=== PATIENT | female | born 1975 | race Two or more races ===

== ENCOUNTER 2025-01-03 00:10 | Inpatient (IN) | payer MEDICAID ==
[~2025-01-03] VITALS: Ht 152.4 cm; Wt 72.9 kg
[2025-01-03] VITALS (7 sets, daily range): BP systolic 98–164; BP diastolic 53–99; PULSE 115–134; RESP 14–24; TEMP 98–103.3; O2SAT 94–98
[2025-01-03] MEDS ORDERED: heparin 25,000 UNIT/250ml bag 250 ML IV PRN (00:20)
--- NOTE | 2025-01-03 00:28 | Physician Documentation ---
History of Present Illness ~ Chief Complaint: Syncope Stated Complaint: NSTEMI Time Seen by MD: 00:25 OK to notify your PCP?: Yes Source: patient, RN/MD, EMS, RN notes reviewed, EMS notes reviewed, old records Mode of Arrival: EMS Exam Limitations: no limitations, language barrier HPI This pleasant Luxembourger-speaking 49-year-old was transferred from [facility] for syncope non ST-elevation NE hypertension found down had an extensive workup. Patient was found to have elevated troponins started on a heparin drip transferred to our facility for admission however the patient also has tachycardia thought to have infection however the etiology is unclear. Patient's laboratory work for the most part was reassuring. Patient now arrives with tachycardia low-grade fever headache lack of meningeal signs. Patient is a 49-year-old was found down on the floor of the bathroom unknown length of time EMS was called local hospitalist saw her. Patient unfortunately answered yes to almost all questions including headache neck pain abdominal pain chest pain shortness of breath etc.. Patient's history is not reliable. When asked what happened patient basically says she does not know. Medication Reconciliation Allergies: Coded Allergies: No Known Allergies (Unverified , 01/03/25) Past Medical History Past Medical History: High Cholesterol, Hypertension, Diabetes, Depression Past Surgical History: cholecystectomy, other (Strict sleeve) Smoking Status: Never smoker Alcohol Use: None Drug Use: none Review of Systems All Other Systems at this time: Reviewed and Negative Physical Exam Vital Signs: RN Vital Signs have been reviewed: Yes, Temperature: 101.6, Source: Oral, Heart Rate: 130, Respiratory Rate: 16, BP: 159/84, Pulse Oximetry: 98, Weight: 72.900 Oxygen Flow Rate: 0 Physical Exam General: The patient is well developed, well nourished, nontoxic appearing and is in no acute distress. Sleepy uncomfortable does not want to talk tired Skin: [place], warm and dry with no rashes. Warm to touch HEENT: Head was normocephalic and atraumatic. Eyes - pupils equal, round, reactive to light and accommodation. Extraocular movements were intact. Conjunctivae were nonicteric. . The mouth and oropharynx were clear with moist mucous membranes. There were no pharyngeal exudates or erythema. Neck: Supple and nontender. There was no jugular venous distention, lymphadenopathy, thyromegaly or masses. Chest: Clear to auscultation bilaterally without wheezes, rales or rhonchi. No accessory muscle use. No dullness to percussion. Heart: Rate regular rapid and rhythmic. S1, S2. No murmurs. Palpation of the chest wall was normal. No rubs or thrills. Abdomen: Soft, nontender and nondistended. Positive bowel sounds. No guarding or rebound. No hepatosplenomegaly or palpable masses. Extremities: No cyanosis, clubbing or edema. The patient moves all extremities. Pulses were equal and symmetric. Neurologic: Cranial nerves II-XII were intact. Sensation was intact to light touch throughout. Motor strength was 5/5 in all four extremities. Deep tendon reflexes were intact in both upper and lower extremities. Psychologic: The patient was oriented to person, place and time. The patient demonstrated appropriate judgement and insight. Progress Progress Note 1:30 a.m. case discussed with the hospitalist team regarding admission possible etiologies regarding tachycardia. Results/Orders Reviewed/noted all lab results: Yes Results/Orders Orders - ANY WALDEN MD Monitor (01/03/25 00:12) Saline Lock (01/03/25 00:12) Oxygen (01/03/25 00:12) Electrocardiogram (01/03/25 00:12) Hs Troponin I W Calculations (01/03/25 02:12) Hs Troponin I W Calculations (01/03/25 03:12) Heparin 10,000 Unit/Ml 1ml (Heparin 10,0 (01/03/25 00:20) Heparin 25,000 Unit/250ml Bag (Heparin 2 (01/03/25:25) Acetaminophen 1,000mg/100ml Iv (Ofirmev (01/03/25 02:00) Procalcitonin (01/03/25 01:00) Ceftriaxone 2gm/D5w 50ml Bag (Rocephin 2 (01/03/25 01:00) Azithromycin/Ns 500mg/250ml (Zithromax/N (01/03/25 01:00) Chest,Single View (01/03/25 01:06) Cardiac Ptt (01/03/25 03:00) * Miscellaneous Nursing Orders (01/03/25 01:06) Completed Orders - ANY WALDEN MD Cbc/Diff (01/03/25 00:12) BMP (01/03/25 00:12) PBNP (01/03/25 00:12) Hs Troponin I W Calculations (01/03/25 00:12) Pt Inr (01/03/25 00:17) PTT (01/03/25 00:17) Heparin 25,000 Unit/250ml Bag (Heparin 2 (01/03/25 00:20) Acetaminophen 1,000mg/100ml Iv (Ofirmev (01/03/25 00:25) Normal Saline 1000ml (0.9% Sodium Chlori (01/03/25 00:25) Chest,Single View (01/03/25 01:06) Medications Received in ER Medications (Trade) Dose Ordered Sig/Jonh Route PRN Reason Start Time Stop Time Status Last Admin Dose Admin Acetaminophen 100 ml @ 400 mls/hr ONCE ONCE IV 01/03/25 00:25 10 00:39 DC 01/03/25 00:35 400 MLS/HR Heparin Sodium/ Dextrose 250 ml @ 9 mls/hr [id number] PRN IV TO MAINTAIN PTT WITHIN RANGE 01/03/25 00:25 01/03/25 01:22 9 MLS/HR (0.9% sodium chloride (NS) 1000ml IV soln) 1,000 ml ONCE ONCE IVB 01/03/25 00:25 01/03/25 00:26 DC 01/03/25 00:54 1,000 ML Vital Signs 01/03/25 01/03/25 00:13 00:58 Temp 101.6 Pulse 130 Resp 16 20 B/P (MAP) 159/84 Pulse Ox 98 O2 Flow Rate 0 Laboratory Tests Test 01/03/25 00:35 White Blood Count 10.7 Red Blood Count 4.82 Hemoglobin 14.7 Hematocrit 43.5 Mean Corpuscular Volume 90.1 Mean Corpuscular Hemoglobin 30.5 Mean Corpuscular Hemoglobin Concent 33.8 Red Cell Distribution Width 14.2 Platelet Count 156 Mean Platelet Volume 9.3 Neutrophils (%) (Auto) 81.3 H Lymphocytes (%) (Auto) 14.6 L Monocytes (%) (Auto) 3.8 Eosinophils (%) (Auto) 0 Basophils (%) (Auto) 0.3 Neutrophils # (Auto) 8.7 H Lymphocytes # (Auto) 1.6 Monocytes # (Auto) 0.4 Eosinophils # (Auto) 0.0 Basophils # (Auto) 0.0 CBC Comment Prothrombin Time 11.4 INR International Normalized Ratio 1.1 Activated Partial Thromboplast Time 59 H Coagulation Comments Sodium Level 141 Potassium Level 3.7 Chloride Level 104 Carbon Dioxide Level 24.5 Anion Gap 13 Blood Urea Nitrogen 14 Creatinine 1.06 H Estimated GFR/1.73 m2 55 BUN/Creatinine Ratio 13.2 Glucose Level 180 H Calcium Level 8.9 Troponin I High Sensitivity 268 *H Pro-B-Type Natriuretic Peptide 492 H Albumin 3.7 Chemistry Comments Re-Evaluation Re-Evaluation : Re-Evaluation: Unchanged Progress Patient was seen and examined. Patient is given reassurance. Patient had and a very extensive workup at [place] looking for possible fever and etiologies of the elevated troponins. Patient's so has tachycardia fever but no source of infection. Patient arrived on a heparin drip was continued on that received another L bolus for the tachycardia also Tylenol for the fever. Review of the medical record shows the fluid boluses that the patient received also radiographic studies which showed a CT C-spine without contrast was negative CT abdomen pelvis with IV contrast which was negative for infection or abnormality CT of the head was negative for any intracranial bleed or stroke. CT angiogram of the chest was also done to rule out pulmonary embolism did not show any infiltrates or effusions. Patient's laboratory work showed a white count of 10.7 otherwise within normal limits chemistry was also reassuring with a CO2 level slightly low at 21 glucose 244 BUN 12 creatinine was 1.25 calcium was elevated at 10.4 normal magnesium and bilirubin slightly elevated at 1.27 otherwise LFTs within normal limits TSH was 0.8 lactic acid initially was 2.2 then 1.70 and improve lipase was normal. Urinalysis was negative for any source of infection. Patient even had a toxicology workup which was negative for alcohol aspirin and Tylenol. The CT scan did show patchy opacities of the posterior left lower lobe which possibly could represent pneumonia. Patient ultimately was then discharged to our facility for further workup and care. Medications that were given at [facility] includes saline boluses labetalol contrast dye Compazine Benadryl heparin drip Continuous youth nutritional monitor interpretation shows sinus tachycardia heart rate 130s, abnormal, my interpretation. Pulse oximetry monitor interpretation shows normal oxygenation at 98% room air, normal, my interpretation. I did not see any antibiotics given at [place]. Patient has no allergies was given Rocephin and Zithromax. EKG/XRAY/CT/US/VASC/MRI EKG : Intepreting Monitor?: Yes Additional Comment 20 minutes after midnight EKG shows sinus tachycardia heart rate 126 with QTC 502 poor R-wave progression. Chest X-Ray : Interpreted By: self Views: 1 VIEW Additional Comments Increased markings but no obvious infiltrates noted Medical Decision Making Additional info obtained from: old records Differential Dx:Considerations: Include: anemia, CVA, cerebral occlusion, cerebral thrombosis, dehydration, dysrhythmia, electrolyte disorder, encephalopathy, hypoglycemia, hypovolemia, labyrinthitis, Meniere's disease, myocardial infarction, pulmonary embolus, TIA, vasovagal, VBI, vertigo central, vertigo peripheral, vestibular neuronitis, other Departure Disposition: ADMITTED INPATIENT Admitted to Inpatient Unit: yes, to hospitalist Admission Level of Care: PCU with Tele Impression: Primary Impression: Syncope Qualified Codes: R55 - Syncope and collapse Additional Impressions: Non-STEMI (non-ST elevated myocardial infarction) Fever Qualified Codes: R50.9 - Fever, unspecified Tachycardia Pneumonia Qualified Codes: J18.9 - Pneumonia, unspecified organism Condition: Critical Referrals: NO PRIMARY CARE PROVIDER (PCP) Education Educated: Patient Educated regarding: diagnosis, need for follow up, other Critical Care Note Total Time (mins): 33 Critical Care Note The very real possibility of a deterioration of this patient's condition required the highest level of my preparedness for sudden, emergent intervention. I provided critical care services, which included medication orders, frequent reevaluations of the patient's condition and response to treatment, ordering and reviewing test results, and discussing the case with various consultants. Excludes time spent performing separately billable procedures. The critical care time associated with the care of the patient was. 33 minutes Signature Scribe Signature: No Attestation: The note accurately reflects work and decisions made by me.Any Walden MD 01/03/25 00:59 ANY WALDEN MD Jan 03, 2025 00:28
[2025-01-03] MEDS: acetaminophen 1,000mg/100ml IV 100 ML IV ONE ×2 (00:35→20:56)
[2025-01-03 00:51] LABS: MEAN PLATELET VOLUME 9.3 FL (7.4-10.4); RED CELL DISTRIBUTION WIDTH 14.2 % (11.5-14.5)
[2025-01-03] MEDS: normal saline 1000ML IV soln IVB ONE (00:54)
[2025-01-03] MEDS: acetaminophen 1,000mg/100ml IV 100 ML IV SCH (00:55)
[2025-01-03] MEDS: azithromycin/NS 500mg/250ml 250 ML IV ONE (01:00)
[2025-01-03 01:01] LABS: APTT 59 SECONDS (22-32); INR 1.1 INR
[2025-01-03 01:09] LABS: CREATININE 1.06 MG/DL (0.40-0.90); PRO BRAIN NATRIURETIC PEPTIDE 492 PG/ML (0-125); TOTAL CARBON DIOXIDE 24.5 MMOL/L (24-32); eCRCL 46 ML/MIN; eGFR 55 ML/MIN
[2025-01-03] MEDS: heparin 25,000 UNIT/250ml bag 250 ML IV PRN (01:22)
[2025-01-03] MEDS: CefTRIAXone 2gm/D5W 50ml BAG 50 ML IV ONE (01:27)
[2025-01-03] MEDS ORDERED: magnesium sulf-water 2g/50mL 50 ML IV PRN (02:00)
[2025-01-03] MEDS ORDERED: potassium Cl 40MEQ/1/2NS 520ml 520 ML IV PRN (02:00)
[2025-01-03] MEDS ORDERED: magnesium Cl slow-release 64mg tablet PO PRN (02:00)
[2025-01-03] MEDS: normal saline 1000ml 1,000 ML IV SCH (02:00)
[2025-01-03] MEDS ORDERED: potassium Cl 20 mEq SR tablet PO PRN (02:00)
[2025-01-03] MEDS ORDERED: magnesium sulf-water 4G/100mL 100 ML IV PRN (02:00)
[2025-01-03 02:22] LABS: INFLUENZA TYPE A ANTIGEN RAPID NEGATIVE (Negative); INFLUENZA TYPE B ANTIGEN RAPID NEGATIVE (Negative)
--- NOTE | 2025-01-03 02:25 | HISTORY AND PHYSICAL-Residence ---
History & Physical Providers to CC Resident Creating Document: ERICK PEREZ RES ~ History of Present Illness Primary Medical Doctor: Unknown Reason for Admit\\Complaint: AMS, Syncope, Sepsis History of Present Illness 49-year-old female Indonesian-speaking patient with a past medical history of insulin-dependent type 2 diabetes mellitus and hypertension was transferred to our facility from [place] for further management of her syncope, AMS and hypothermia. An sign language interpreter head with translation and communication (ID #[id number]). Patient is a very poor historian and is reluctant to provide any history by herself. Reviewed records from [place] and very minimal information has been obtained from the patient. 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 As per EMS and [place], the patient is brought in by ambulance after she had a syncopal episode at home. The ambulance was called in by her son. She presented with high blood pressure in the high 180s and persistent sinus tachycardia. She was also found to be febrile throughout the hospitalization. An extensive workup was done in the other hospital including a CT head and CT spine had no acute abnormalities. In view of the tachycardia, 1.5 L of IV fluid boluses were given but her heart rate failed to respond to either. IV labetalol 10 mg IV push x2 was given and the patient is still failed to respond. A CTA chest ruled out presence of pulmonary embolism but revealed possible patchy opacities in the posterior left lower lobe reflecting possible mild aspiration pneumonitis. A CT with IV contrast of the abdomen and pelvis were also performed but to his lack of oral contrast and largely collapsed large bowel; examination was limited. However, they found no free fluid or loculated fluid collection within the abdomen. Her labs also indicated lactic acidosis, initially at 1.7 which later increased to 2.2 despite IV fluid resuscitation. Her blood glucose was only 244. She was additionally evaluated for creatinine kinase and TSH which were also within normal limits. No antibiotics were given at [place]. She was transferred for higher level care has a troponins were elevated mildly NS suspicion of NSTEMI a heparin drip was started prior to transfer. Review of medications, Contrasting history was provided by the patient reporting that she had suffered no fall and felt acutely weak while she was in the bathroom. She reports having chills and headache over the last couple of days but had no fevers, shortness of breath, cough, abdominal pain, burning micturition, or diarrhea. She reports some "gentleman" called the ambulance for her as she was significantly weak. Course at [place]: 1.5 L bolus, Iv labetolol 10mg IV push x2. Heparin drip. Labs: White count 10.7 with neutrophilic predominance at 84%. Hemoglobin 16.7 and hematocrit 49.2. CMP revealed blood glucose at 2:44 a.m., creatinine 1.25, elevated calcium at 10.4, no albumin on board. Elevated total bilirubin at 1.27. ALT within normal limits with mildly elevated AST at 36. Normal alkaline phosphatase normal lipase. Ammonia 28. Urine tox positive for benzodiazepines. Tylenol level, salicylic acid level and ethanol level were negative. His UA was also cleaned for a UTI Allergies: Coded Allergies: No Known Allergies (Unverified , 01/03/25) Past Medical History Past Medical History Hypertension, type 2 diabetes mellitus- insulin-dependent, depression Past Surgical History Surgical History Comment Appendectomy, cholecystectomy, /hysterectomy Past Social History Social History Comment Unable to be obtained Alcohol Use: None Drug Use: None ROS All Other Systems: Reviewed and Negative ROS Unable to be fully obtained Constitutional: Reports: chills Exam Vitals: Vital Signs Date Time Temp Pulse Resp B/P (MAP) Pulse Ox O2 Delivery O2 Flow Rate FiO2 01/03/25 02:04 99.9 124 18 125/98 (107) 98 01/03/25 00:13 0 General: General: Awake and drowsy. Wakes up on command. Febrile to touch HEENT: Conjunctiva pink, Sclera clear, Mucus Membranes dry Neck: Supple without masses and tenderness. No Kernig's or Brudzinski's sign Resp: Unlabored. Lungs clear to auscultation bilaterally. Heart: Sinus tachycardia, normal S1 and S2 without murmur, rub or gallop. Abdomen: Diffuse tenderness noted. Soft and non tender no organomegaly Extremities: No cyanosis,clubbing or edema. SHEET LAYER: Unable to perform secondary to drowsiness and voluntary inhibition Skin: Warm and Dry. No rashes Diagnostic Data Last Recorded Lab Results: 01/03/25 0035 01/03/25 0035 Diagnostic Data: Laboratory Tests Test 10/5/25 00:35 Prothrombin Time 11.4 SECONDS (9.0-12.0) INR International Normalized Ratio 1.1 INR Activated Partial Thromboplast Time 59 SECONDS (22-32) H Coagulation Comments Advance Care Planning Advanced Care plannin - 30 Minutes Additional Plan 1. Altered mental status: Acute metabolic versus toxic encephalopathy Differentials: Infectious versus/medication overdose/serotonin syndrome/meningitis/encephalitis Syncope under evaluation SIRS: POA; febrile and hypotensive (91/60 when in the room) Neutrophilic predominance at 81.3%, WBC 10.7. Follow peripheral smear Influenza and COVID negative. Follow up blood cultures. Follow UA and urine cultures if required Lactic acidosis at the other facility; repeat lactic acid ordered. Procalcitonin mildly elevated 0.6. Repeat procalcitonin in a.m. Continue IVF at the rate of 100 cc/hour. Empirical cefepime started fro better SHEET LAYER coverage If next procalcitonin still elevated, consider evaluating abdominal tenderness with CT abdomen and pelvis with oral contrast If encephalopathy persists, consider ABG. Consider neurology consulted Infectious Disease consult as well for ongoing encephalopathy patient fails to improve Other differentials include toxic encephalopathy secondary to benzodiazepine use. UA positive for benzodiazepine, home meds do not revealed benzos as it was not given an [place] as per medical records. Repeat tox screen ordered Possible serotonin syndrome because patient is agitated, diaphoretic, febrile, and hypertensive. Clonus or hypertonia was not appreciated. Benzos already present in the UA which could mean she might have received it; preventing her presentation of clonus or hypertonia Continue close hemodynamic monitoring Follow echocardiogram for syncope. Continue telemetry monitoring Passed bedside swallow eval Fall precautions, neurochecks Q4 2. Mild aspiration pneumonitis: Chest x-ray with no acute abnormalities Likely recovering infection Home medications revealed azithromycin fro 5 days as a history 3. Prolonged QT: QT 507 Hemodynamically stable Likely from azithromycin and Lexapro combination Potassium within normal limits. Follow Mag and phos levels Replace potassium as per protocol Continue telemetry monitoring Repeat EKG in am 4. NSTEMI/type 2 WV: Asymptomatic EKG reveals sinus tachycardia Likely demand ischemia Cardiology evaluation in am 5. Mild CALI: Unknown baseline Creatinine 1.2 at the other facility; improved to 1.06 on our labs here with IVF Continue IVF rate of 100 cc/hour Follow up BMP 6. Hypertension: On lisinopril 40 mg and metoprolol 50 mg b.i.d. One dose metoprolol enough food sinus tachycardia Monitor for hemodynamic stability 7. Insulin-dependent type 2 DM: On hyperglycemia/hypoglycemia protocol 8. Depression: On Lexapro 10 mg 9. Hypokalemia: Home medication of 8 mEq potassium chloride Likely secondary to insulin-dependent DM leading to hypokalemia Revisit: Patient continued to be tachycardic. Received another bolus of IV fluids. Received a total of 3.5 L IV fluid boluses. Additionally, she received Rocephin and Zithromax in the ER. Lines: PIV Code status: Full code DVT prophylaxis: Heparin GI prophylaxis: Heparin Diet: 75 g carb controlled Erick Perez PGY3, Internal medicine resident I saw and discussed the case with the resident agree with assessment and plan Date of Service: Jan 03, 2025 Billing Provider: BRIDGETTE HANKS MD, DEEPANJALI, [facility] Jan 03, 2025 02:25 BRIDGETTE HANKS MD Jan 03, 2025 08:04
[2025-01-03] MEDS ORDERED: dextrose 50%-water 50ml dispensing syringe IV PRN ×2 (02:55)
[2025-01-03] MEDS ORDERED: DEXTROSE 15 GM of carb/4 tabs (each vial/BOTTLE has 4 tablets) PO PRN ×2 (02:55)
[2025-01-03] MEDS ORDERED: glucagon, human recombinant 1mg kit SUBCUT PRN (02:55)
--- NOTE | 2025-01-03 03:12 | RADIOLOGY REPORT ---
CHEST RADIOGRAPH Indication: SOB Technique: 1 view Comparison: None FINDINGS: Lines and Tubes: External leads. Lungs/Pleura: Interstitial opacities in the fvpz-ytrjgvv-xabi-right lower lungs. No focal consolidation. No pleural abnormality. Cardiomediastinum: Unremarkable. Other: No acute osseous abnormality. Right upper quadrant surgical clips. IMPRESSION: 1. Ljan-ogzrjlr-qumv-right basilar interstitial opacities suggest edema or atypical infection. No consolidation.
[2025-01-03] MEDS: normal saline 1000ml 1,000 ML IV ONE ×3 (03:40→18:30)
[2025-01-03] MEDS ORDERED: [UNRECOGNIZED DRUG - CODE] PO (05:09)
[2025-01-03] MEDS ORDERED: ESCI10TA PO (05:13)
[2025-01-03] MEDS ORDERED: POTA-205 PO (05:13)
[2025-01-03] MEDS ORDERED: LISI40TA20 PO (05:13)
[2025-01-03] MEDS ORDERED: FURO-150 PO (05:13)
[2025-01-03] MEDS ORDERED: METO50TA16 PO (05:13)
[2025-01-03] MEDS ORDERED: METF-438 PO (05:13)
[2025-01-03 05:25] LABS: PHOSPHORUS 4.0 MG/DL (2.3-4.5)
[2025-01-03] MEDS ORDERED: piperacillin/tazo 3.375gm/50ml 50 ML IV SCH (08:00)
[2025-01-03] MEDS ORDERED: heparin, porcine 5000 units/ml vial SQ SCH (08:00)
[2025-01-03] MEDS ORDERED: ipratropium/albuterol 3ml nebule NEB PRN (08:25)
[2025-01-03] MEDS: docusate sod 100mg capsule PO SCH (08:34)
[2025-01-03] MEDS: INSULIN LISPRO 100 UNIT/ML INSULN.PEN MULTI-DOSE SQ SCH (08:47)
[2025-01-03 09:53] LABS: LYMPHOCYTES % (MANUAL) 30.0 % (21-51); MONOCYTES % (MANUAL) 8.0 % (2-12); NEUTROPHILS % (MANUAL) 62.0 % (42-75)
[2025-01-03 09:54] LABS: PLATELET ESTIMATE NORMAL
[2025-01-03] MEDS: K and/or MAG REPLACEMENT MC SCH (12:55)
[2025-01-03] MEDS: MESSAGE TO NURSING IV ONE (12:55)
--- NOTE | 2025-01-03 15:48 | VASCULAR REPORT ---
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 : DARRELL NAGY Preliminary Report The above named patient was referred for a NON-INVASIVE CEREBROVASCULAR EVALUATION. The evaluation includes grayscale imaging, color flow Doppler and spectral analysis of the bilateral carotid and vertebral arteries. Patient IN-PATIENT L tatihnBilateral Indications Syncope Risk Factors Hypertension: Diabetes Doppler Spectral Velocity Analysis Right Left pCCA 118/15 cm/s pCCA 142/22 cm/s dCCA 133/20 cm/s dCCA 173/22 cm/s ECA 146/ cm/s ECA 188/ cm/s pICA 38/4 cm/s pICA 67/0 cm/s Arron 154/19 cm/s Arron 84/16 cm/s dICA 102/4 cm/s dICA 44/6 cm/s Vert 192/65 cm/s Vert. 111/56 cm/s Subcl. 138/ cm/s Subcl. 195/ cm/s ICA/CCA 1.16 ICA/CCA 0.48 Real-Time B-Mode Imaging Area Findings Right Left CCA Plaque Composition Heterogeneous Heterogeneous Plaque Description Irregular Irregular BIF Plaque Composition Heterogeneous Heterogeneous Plaque Description Irregular Irregular ICA Plaque Composition Heterogeneous Heterogeneous Plaque Description Irregular Irregular Vertebral Antegrade Antegrade Subclavian Multiphasic Multiphasic Impression: Technically difficult exam due to increased resistive components noted throughout the carotid arteries bilaterally. Difficulty assessing with temporal tab due to patient body habitus and elevated heart rate. Heterogeneous irregular plaque visualized at the carotid artery bifurcation extending into the proximal internal carotid arteries bilaterally. Less than 50% stenosis visualized in the internal carotid arteries bilaterally per criteria, however, visually the internal carotid arteries appear greater than 70% stenosed bilaterally. There was also a increased resistive component noted in the internal carotid arteries bilaterally, possibly suggesting a distal obstruction. Less than 50% stenosis visualized in the external and common carotid arteries bilaterally. The vertebral arteries display antegrade flow bilaterally, flow in the vertebral arteries also appears compensatory. Multiphasic waveforms noted in the subclavian arteries bilaterally. Findings verbally relayed to ordering physician.
[2025-01-03] MEDS: cefepime 1GM in D5W 50mL 50 ML IV SCH (16:24)
[2025-01-03] MEDS: aspirin 81mg, enteric-coated 1 TAB TABLET.DR PO ONE ×2 (16:55→17:07)
[2025-01-03] MEDS: metoprolol tartrate 1mg/ml inj IV PRN (17:44)
[2025-01-03] MEDS ORDERED: metoprolol tartrate 1mg/ml inj IV PRN (18:00)
[2025-01-03] MEDS ORDERED: aminophylline 250mg/10ml inj. IV PRN (18:00)
[2025-01-03 18:25] LABS: URINE AMPHETAMINE SCREEN NEGATIVE (Neg); URINE BARBITUATE SCREEN NEGATIVE (Neg); URINE BENZODIAZEPINES SCREEN NEGATIVE (Neg); URINE CANNABINOID SCREEN NEGATIVE (Neg); URINE COCAINE SCREEN NEGATIVE (Neg); URINE METHADONE SCREEN NEGATIVE (Neg); URINE OPIATE SCREEN NEGATIVE (Neg); URINE PHENCYCLIDINE SCREEN NEGATIVE (Neg)
[2025-01-03 18:31] LABS: LEUKOCYTE ESTERASE ,URINE NEGATIVE (Neg); NITRITES, URINE NEGATIVE (Neg); OCCULT BLOOD,URINE TRACE-INTACT (Neg)
[2025-01-03 18:37] LABS: UA COLLECTION TYPE NON-SPECIFIED
[2025-01-03 18:39] LABS: MUCUS STRANDS FEW /LPF (Neg); SQUAMOUS EPITHELIAL CELL,UR FEW /LPF (FEW)
[2025-01-03] MEDS: VANCOMYCIN/H2O 1.5g/300mL PB 300 ML IV ONE (19:47)
[2025-01-03] MEDS: insulin glargine (Lantus) pen - multi-dose SQ SCH (21:16)
--- NOTE | 2025-01-03 23:43 | RADIOLOGY REPORT ---
PROCEDURE: MR MRI HEAD INDICATION: syncope EXAM DATE: 01/03/2025 06:38 PM COMPARISON: None TECHNIQUE: MRI of the brain without intravenous contrast. FINDINGS: Diffusion weighted images of the brain demonstrate no evidence of acute infarction. There is no evidence of acute intracranial hemorrhage, extra-axial collection, mass effect, midline shift, herniation or hydrocephalus. The ventricles, sulci and cisterns appear age appropriate. Minimal foci of kwtg-ibiutbx-jcgx-right subcortical and periventricular white matter T2/FLAIR hyperintensity. There are no signal abnormalities on the susceptibility weighted sequences. The major vascular flow voids are present. The visualized paranasal sinuses and mastoid air cells are clear. The surrounding soft tissues and osseous structures are unremarkable. IMPRESSION: 1. No infarct or other acute intracranial abnormality. 2. Minimal burden of white matter signal change, most likely related to chronic microangiopathy. 3. A baseline head CT is recommended if not previously acquired.
[2025-01-04] VITALS (15 sets, daily range): BP systolic 97–178; BP diastolic 50–89; PULSE 102–121; RESP 10–18; TEMP 97.4–99.3; O2SAT 94–100
[2025-01-04 01:30] LABS: MEAN PLATELET VOLUME 9.3 FL (7.4-10.4); RED CELL DISTRIBUTION WIDTH 14.0 % (11.5-14.5)
[2025-01-04 01:46] LABS: CHOL/HDL RATIO 3.6 (0.00-4.99); CREATININE 0.72 MG/DL (0.40-0.90); LDL CHOLESTEROL 69 MG/DL (50-100); PHOSPHORUS 2.3 MG/DL (2.3-4.5); TOTAL CARBON DIOXIDE 24.1 MMOL/L (24-32); eCRCL 67 ML/MIN; eGFR 86 ML/MIN
[2025-01-04] MEDS: MESSAGE TO NURSING IV ONE ×3 (02:25→10:39)
[2025-01-04] MEDS: heparin 10,000 units/1 ML INJ IV PRN (02:49)
--- NOTE | 2025-01-04 05:25 | ELECTROCARDIOGRAPH REPORT ---
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 Brice Gutierrez Measurements Intervals Amigo Rate: 126 P: 48 MA: 129 QRS: 37 QRSD: 85 T: 30 QT: 346 QTc: 502 Interpretive Statements Sinus tachycardia Probable left atrial enlargement Borderline prolonged QT interval Electronically Signed On 01-04-2025 5:36:[address] Brice Gutierrez Please click the below link to view image of tracing.
[2025-01-04] MEDS: aspirin 81mg, enteric-coated 1 TAB TABLET.DR PO SCH (08:05)
[2025-01-04] MEDS: ondansetron/PF 4mg/2ml inj IV PRN (08:05)
[2025-01-04] MEDS: LidoCAINE 2% Topical Jelly 11mL syringe (UROJET) TOP ONE (09:02)
[2025-01-04] MEDS: azithromycin/NS 500mg/250ml 250 ML IV SCH (09:04)
[2025-01-04] MEDS ORDERED: heparin 25,000 UNIT/250ml bag 250 ML IV PRN (10:28)
--- NOTE | 2025-01-04 12:32 | PROGRESS NOTE ---
Daily Progress Note Providers to CC ~ Antibiotic Timeout Antibiotic Ordered?: Yes Subjective No acute events overnight. Patient examined at bedside. No new complaints. Patient denies chest pain, sob, palpitations, abdominal pain, n/v/d. Persistently febrile, today 102F, one out of two preliminary blood cultures positive. MRI head negative acute intracranial abnormality. TTE LVEF 70-75%, no evidence of vegetation. Consulted ID Dr. Garcia. Lumbar puncture to be done per ID recommendation. LP ordered. Objective Vital Signs Date Time Temp Pulse Resp B/P (MAP) Pulse Ox O2 Delivery O2 Flow Rate FiO2 01/04/25 11:00 97.5 108 10 112/58 (76) 97 Room Air 01/04/25 07:18 0 21 Result Diagram: 01/04/2511301/04/25113 Physical Exam General: Generalized weakness, awake, not alert or oriented, NAD HEENT: Normocephalic, PERRLA Neck: Supple, trachea midline, no JVD Chest: Clear to auscultation bilaterally Cardiovascular: Rapid, regular GI: Soft and nontender Extremities: No cyanosis/clubbing/or edema ALUMINUM HYDROXIDE PROCESS OPERATOR: No focal deficits Musculoskeletal: No paraspinal muscle tenderness, no muscle spasm Skin: Warm and intact Coagulation Studies Laboratory Tests Test 01/03/25 00:35 01/04/25 09:00 Prothrombin Time 11.4 SECONDS (9.0-12.0) INR International Normalized Ratio 1.1 INR Activated Partial Thromboplast Time 59 SECONDS (22-32) H APTT (Heparin Protocol) 101 SECONDS (45-60) *H Coagulation Comments Problem\Assessment\Plan Assessment & Plan Meningitis- to rule out Syncope Bacteremia Sepsis- source unknown NSTEMI likely Type II TN 2/2 above -influenza, COVID19 neg, UA unremarkable, CT abd/pelv at OSH unremarkable, elevated lactic acidosis 2.2 at OSH downtrended to 2.0, CTA PE ruled out but showed patchy opacities in posterior left lobe of lung, trops, Oneyda neg downtrended, UDS at OSH positive BZD; TTE LVEF 70-75%, no evidence of vegetation, consulted ID Dr. Garcia with recommendation for lumbar puncture. LP ordered, will be done by anesthesiologist Dr. Mendes. Mild aspiration pneumonitis -CXR negative acute findings CALI vs CKD Hypertension IDDM MDD Hypokalemia -antihypertensive started, on hyperglycemia/hypoglycemia protocol, K/Mg per protocol Code status: Full code DVT/VTE prophylaxis: heparin Date of Service: Jan 04, 2025 Billing Provider: YAKOV RAMÍREZ Common Visit Codes: [id number] INP/OBS CARE(HIGH) YAKOV RAMÍREZ Jan 04, 2025 12:32
[2025-01-04] MEDS: regadenoson 0.4mg/5ml syringe IV PRN (12:36)
[2025-01-04] MEDS: acetaminophen 1,000mg/100ml IV 100 ML IV ONE (12:43)
--- NOTE | 2025-01-04 13:38 | RADIOLOGY REPORT ---
Reason for study/Clinical History: nstemi Comparison Study: None Myocardial Perfusion Study with SPECT Technique: The patient received an intravenous injection of 7.7 mCi of technetium-99m Sestamibi while at rest. After a short delay, SPECT tomographic images of the heart were obtained. The patient then went to the stress lab where they received an intravenous Lexiscan utilizing standard protocol. 33.9 mCi of technetium-99m Sestamibi was injected intravenously immediately after the start of the infusion. Gated SPECT tomographic images of the heart were acquired and processed. Findings: Rotating planar images show no significant attenuation artifact. The left ventricular size is within normal limits. Stress tomographic images demonstrate normal perfusion. Resting tomographic images demonstrate a similar pattern. Gated portion of the study shows normal wall motion and myocardial thickening. The left ventricular ejection fraction is 77%. (normal greater than 50%) Impression: Normal left ventricular size, wall motion, and function, without evidence of infarction or of myocardium at ischemic risk. The left ventricular ejection fraction is 77%.
--- NOTE | 2025-01-04 18:48 | CARDIOLOGY REPORT ---
APPROVED REPORT EXAM: Comprehensive 2D, Doppler, and color-flow Echocardiogram. Patient Location: 3016 [address] Heart Rate: 106 bpm Rhythm: SINUS TACHYCARDIA Indications SYNCOPE TACHYCARDIA ELEVATED TROPONINS Utility Aide: NONE Previous echo: NONE 2D Dimensions RVDd 3.6 cm LA Diam 3.5 cm IVSd 0.9 (0.7-1.1cm) LVDd 3.5 cm PWd 0.9 (0.7-1.1cm) IVSs 1.0 (0.8-1.2cm) LVDs 2.5 (2.5-4.0cm) PWs 1.3 (0.8-1.2cm) LVOT Diameter 1.99 (1.8-2.4cm) FS (%) 28.6 % SV 29.3 ml CO 3.1 L/min M-Mode Dimensions Aortic Root 2.37 (2.2-3.7cm) Aortic Valve AoV Peak Dylan. 193.8 cm/s AoV VTI 30.0 cm AO Peak GR. 15.0 mmHg AO Mean GR. 8 mmHg LVOT VTI 27.80 cm NOLBERTO(VTI)/BSA 2.89 cm2/m2 NOLBERTO (VTI) 2.89 cm2 AV DI 0.93 % Mitral Valve MV E Velocity 84.0 cm/s MV Peak Gr. 6 mmHg MV DECEL TIME 164 ms MV A Velocity 119.1 cm/s MV PHT 64 ms E/A Ratio 0.7 MVA (PHT) 3.44 cm2 MV VMax 125.0 cm/s TDI Lateral E' P. V 10.64 cm/s E/Lateral E' 7.9 Pulmonary Vein S1 Velocity 39.9 cm/s D2 Velocity 56.3 cm/s PVa Velocity 28.2 cm/s PVa Duration 160 msec LEFT VENTRICLE Normal LV size and wall thickness. Overall systolic function is normal. LVEF is 70-75%. RIGHT VENTRICLE RV is mildly dilated with normal function. ATRIA The left atrium size is normal. AORTIC VALVE Trileaflet AV appears normal without stenosis. No insufficiency. MITRAL VALVE Mild MV annular calcification without stenosis. Trace regurgitation. TRICUSPID VALVE TV appears structurally normal with trace regurgitation. PULMONIC VALVE Normal PV without stenosis, physiologic insufficiency. GREAT VESSELS The aortic root is normal in size. PERICARDIUM Normal pericardium. No effusion. Other Information Study Quality: Adequate Conclusion Normal LV size and wall thickness. Overall systolic function is normal. LVEF is 70-75%. RV is mildly dilated with normal function. The left atrium size is normal. Trileaflet AV appears normal without stenosis. No insufficiency. Mild MV annular calcification without stenosis. Trace regurgitation. TV appears structurally normal with trace regurgitation. Normal pericardium. No effusion.
[2025-01-04] MEDS: heparin, porcine 5000 units/ml vial SQ SCH (20:08)
[2025-01-04] MEDS: CefTRIAXone 2gm/D5W 50ml BAG 50 ML IV SCH (20:11)
[2025-01-04] MEDS: metoclopramide 5 mg/ml inj IV PRN (20:14)
[2025-01-05] VITALS (20 sets, daily range): BP systolic 114–199; BP diastolic 72–98; PULSE 92–112; RESP 10–22; TEMP 97.7–102.5; O2SAT 94–99
[2025-01-05] MEDS: HYDROcodone/acetaminophen 5mg/325mg tablet PO PRN (03:58)
[2025-01-05 06:48] LABS: MEAN PLATELET VOLUME 9.3 FL (7.4-10.4); RED CELL DISTRIBUTION WIDTH 13.5 % (11.5-14.5)
[2025-01-05 07:07] LABS: CREATININE 0.69 MG/DL (0.40-0.90); PHOSPHORUS 2.4 MG/DL (2.3-4.5); TOTAL CARBON DIOXIDE 25.1 MMOL/L (24-32); eCRCL 70 ML/MIN; eGFR 90 ML/MIN
[2025-01-05] MEDS: pantoprazole 40mg Tablet.DR PO SCH (07:30)
[2025-01-05 07:44] LABS: HIV ANTIBODY 1&2 RAPID NON-REACTIVE (Neg)
--- NOTE | 2025-01-05 08:30 | CONSULTATION ---
DATE OF CONSULTATION: 01/04/2025 DICTATING PHYSICIAN: Candelario Garcia MD REASON FOR CONSULTATION: I am seeing the patient at the request of Wilmer Shepherd for evaluation of fever and sepsis with encephalopathy. HISTORY OF PRESENT ILLNESS: The patient is a 49-year-old female, who lives in [place] and was apparently transferred to this facility from [facility] for further evaluation. I believe she had an elevated troponin that was fairly mild, but she was sent here for a higher level of care. She was apparently brought into that facility with altered mental status. She has demonstrated fever. She does not provide significant history due to some confusion. She speaks Zimbabwean. I did see her today with a healthcare provider that does speak Zimbabwean. She does not have any family at the bedside. She did know the town that she lives in. She was able to tell me that she has had some headache and neck stiffness recently. She otherwise does not have any pain. She denies any focal weakness or numbness. She has been having fever up to 103 at this facility. Interestingly, her white blood cell count is normal. She did have a positive blood culture, but this could represent contamination. She has received a variety of antibiotics thus far including cefepime, azithromycin, and vancomycin. PAST MEDICAL HISTORY: * Diabetes mellitus type 2. * Hypertension. * Depression. * Peripheral neuropathy. PAST SURGICAL HISTORY: * Cholecystectomy. * Appendectomy. * Hysterectomy. ALLERGIES: No known drug allergies. MEDICATIONS: Once again, she has received a variety of antibiotics including cefepime, azithromycin, and vancomycin. She is also receiving: * Aspirin. * Atorvastatin. * Colace. * Subcutaneous heparin. * Insulin glargine. * Humalog. * Labetalol. * Metoprolol. * Pantoprazole. FAMILY HISTORY: Noncontributory. SOCIAL HISTORY: She lives down in [place]. It is unclear if she has family involved in her care. I am unclear regarding her habits. PHYSICAL EXAMINATION: VITAL SIGNS: She has been afebrile today; although, she did have a temperature up to 103.3 yesterday morning. She demonstrates mild tachycardia with a stable blood pressure. She is on room air. GENERAL: She is a middle-aged female, who is currently lying flat on her bed with eyes closed. She does wake up and she will converse briefly before closing her eyes again. She does follow commands. HEENT: Sclerae anicteric. Mouth is clear. NECK: She does not appeared to have significant stiffness. LUNGS: Clear to auscultation bilaterally. HEART: Tachycardic and regular. ABDOMEN: Soft, nontender, and nondistended. EXTREMITIES: No edema. SKIN: No rash. NEUROLOGIC: Neurologically, she is nonfocal and she is moving all 4 extremities. LABORATORY DATA: Her white blood cell count is 9400, hemoglobin 13, and platelets 123,000. Creatinine is 0.7 and procalcitonin was elevated at 0.6. Urine toxicology screen is negative. Testing for influenza and COVID is negative. Blood culture demonstrates gram-positive cocci in clusters in 1 bottle only. Chest x-ray is fairly clear. MRI of the brain did not show any significant changes. Echocardiogram was also unremarkable, although that has not been officially read. I do need to check [facility]'s record regarding other studies. IMPRESSION: * Sepsis of unclear etiology with fever and tachycardia. * Encephalopathy with concern for meningitis. I would suspect more of a viral process. MRI of the brain is unremarkable. I think herpes simplex virus infection is unlikely. She would certainly be at risk for Entero viruses and West Nile virus. She is not known to be immunosuppressed other than her diabetes. * Positive blood culture that may represent contamination. * Diabetes mellitus type 2 that appears to be controlled. PLAN: I do think she should have a lumbar puncture performed. I did communicate this with Wilmer Shepherd and I believe she has reached out to Anesthesiology. This will be sent for the usual studies as well as a meningitis/encephalitis PCR panel. That should be sent to [facility] to get quicker results. I am also going to check an HIV test along with RPR and serology for West Nile virus. She will be maintained on ceftriaxone 2 grams every 12 hours for now. I will follow up her blood culture results as well as her CSF studies. Hopefully, she will start to demonstrate some improvement and provide more history. I will plan to review records at [facility]. I thank you for allowing me to participate in her care. 80 minutes time spent [id number], review of medical record including labs/cultures/imaging, orders and documentation. Candelario Garcia MD TID: [id number] RECEIPT: [id number] MM/M P MTDD
[2025-01-05 10:48] LABS: TOTAL PROTEIN,CSF 100 MG/DL (15-45)
[2025-01-05 11:20] LABS: APPEARANCE,CSF BLOODY; CSF SUPERNATANT COLOR COLORLESS; CSF VOLUME 12.2 ML; TUBE# COUNTED 4
[2025-01-05 11:21] LABS: CSF RBC 24025 /CU MM (0); CSF WBC CT 101 /CU MM (0-5); LYMPHOCYTES,CSF 72 % (40-80); MONOCYTES,CSF 4 % (15-45); NEUTRO,CSF 24 % (0-6)
--- NOTE | 2025-01-05 15:46 | PROGRESS NOTE ---
Daily Progress Note Providers to CC No new complaint today, resting comfortably in the bed ~ Central Line/PICC still needed: No Dela Cruz-Non Protocol Dela Cruz Indications Met/Not Met: F/C Indications Not Met Antibiotic Timeout Antibiotic Ordered?: Yes MRSA Education MRSA Education Provided to pt: Yes Subjective As above Objective Vital Signs Date Time Temp Pulse Resp B/P (MAP) Pulse Ox O2 Delivery O2 Flow Rate FiO2 01/05/25 14:00 99.0 109 18 129/74 (92) 98 01/05/25 11:04 Room Air* 0 21 Vital signs, stable , Pulse Oximetry reflects adequate oxygenation, tachycardic, febrile, General: well developed, well nourished. Awake , alert, and oriented x4, resting comfortably in the bed, in no acute distress . Skin: Warm, dry, no pallor, no rash or petechiae. HEENT: Atraumatic, normocephalic, EOMI, anicteric sclera B; pink conjunctiva; PERRLA, normal oropharynx, moist oral and nasal mucosa. Tympanic membrane , nose , throat clear. Neck: Trachea midline. Supple, full range of motion, no JVD, bruit , hepatojugular reflex , lymphadenopathy or masses, or other lesions Cardiac: Regular rhythm, regular rate no murmurs, rubs, or gallops. Normal S1 and S2, no S3 noticed. PMI is normal. Respiratory: Equal breath sounds bilaterally, no tachypnea; lungs clear to auscultation bilaterally, no wheezing ,rub or rales, or crackles. Chest wall is symmetric and without deformity. No signs of trauma. Chest wall is nontender. No signs of respiratory distress. Resonance is normal upon percussion bilaterally. Gastrointestinal: Abdomen symmetric, non-distended, soft, non-tender, normal bowel sounds x4 quadrant, normoactive, no hepatosplenomegaly , no masses , no bruit, no flank pain bilaterally. No voluntary guarding, rebound, or rigidity. No tenderness to percussion. No pulsatile masses. Equal femoral pulses. No Nails's sign or McBurney point tenderness. Back; no CVA tenderness bilaterally, no deformities. Neck and back are without deformity as well. No tenderness noted on palpation of the spinous processes. Spinous processes are midline. Cervical, thoracic, and lumbar paraspinal muscles are not tender and are without spasm. Musculoskeletal: Extremities, normal range of motion, non-tender, muscle strength 5/5 x 4. Negative Homans signs bilaterally on lower extremity. Distal pulses full symmetrical, no clubbing, cyanosis , edema. Neurological: Speech is clear, alert, and oriented x 4. No motor or sensory deficit, deep tendon reflexes normal, cerebellar intact. Cranial nerves II-XII intact. Psych: Alert and or appropriate, normal affect. Vascular: Good distal pulses, which are equal x4; capillary refill less than 2 seconds. Lymphatic, no lymphadenopathy. Result Diagram: 01/05/2562401/05/25624 Coagulation Studies Laboratory Tests Test 01/03/25 00:35 01/04/25 09:00 Prothrombin Time 11.4 SECONDS (9.0-12.0) INR International Normalized Ratio 1.1 INR Activated Partial Thromboplast Time 59 SECONDS (22-32) H APTT (Heparin Protocol) 101 SECONDS (45-60) *H Coagulation Comments Problem\Assessment\Plan Assessment & Plan Meningitis-encephalitis, viral Syncope Bacteremia Sepsis- source unknown NSTEMI likely Type II NE 2/2 above -influenza, COVID19 neg, UA unremarkable, CT abd/pelv at OSH unremarkable, elevated lactic acidosis 2.2 at OSH downtrended to 2.0, CTA PE ruled out but showed patchy opacities in posterior left lobe of lung, trops, Oneyda neg downtrended, UDS at OSH positive BZD; TTE LVEF 70-75%, no evidence of vegetation, consulted ID Dr. Garcia with recommendation for lumbar puncture. LP ordered, will be done by anesthesiologist Dr. Mendes. Mild aspiration pneumonitis -CXR negative acute findings CALI vs CKD Hypertension IDDM MDD Hypokalemia -antihypertensive started, on hyperglycemia/hypoglycemia protocol, K/Mg per protocol Patient noncompliant with treatment refuses many procedure and medications Code status: Full code DVT/VTE prophylaxis: heparin Sepsis Screening Reassessment Date: Jan 05, 2025 Date of Service: Jan 05, 2025 Billing Provider: NEVIN BLOOM MD Common Visit Codes: [id number] INP/OBS CARE(HIGH) NEVIN BLOOM MD Jan 05, 2025 15:46
--- NOTE | 2025-01-05 16:34 | PROGRESS NOTE ---
Progress Note Dictate Providers to CC ~ Subjective Subjective: She is definitely more awake and interactive/conversant today. LP was completed. Objective Objective: Tmax 99.9 GENERAL: She is a middle-aged female, who is currently lying in bed looking stable LUNGS: Clear to auscultation bilaterally. HEART: Tachycardic and regular. ABDOMEN: Soft, nontender, and nondistended. EXTREMITIES: No edema. SKIN: No rash. NEUROLOGIC: Neurologically, she is nonfocal and she is moving all 4 extremities. Lab Results: 01/05/25 0625 01/05/25 06 Lab comments: CSF with WBC 101 with 76% mononuclear cells (24K RBC) protein 100 HIV negative Problem\Assessment\Plan Additional Plan 1. Meningoencephalitis of unclear etiology - suspect viral process CSF PCR panel at [facility] negative 2. Sepsis with improving fever 3. Positive blood culture that may represent contamination 4. Diabetes mellitus type 2 that appears to be controlled Continue ceftriaxone for now F/U cultures F/U RPR F/U WNV serology Check Coccidioides serology PT evaluation ELVA CHE MD Jan 05, 2025 16:34
[2025-01-05] MEDS: potassium Cl 20 mEq SR tablet PO PRN (21:13)
[2025-01-06] VITALS (8 sets, daily range): BP systolic 116–150; BP diastolic 59–81; PULSE 82–101; RESP 12–18; TEMP 97.5–99.4; O2SAT 97–99
[2025-01-06] MEDS: mag hydrox/Alum hydrox/simeth 30ml oral suspension PO PRN (02:49)
[2025-01-06] MEDS ORDERED: magnesium Cl slow-release 64mg tablet PO PRN (03:35)
[2025-01-06] MEDS ORDERED: magnesium sulf-water 2g/50mL 50 ML IV PRN (03:35)
[2025-01-06] MEDS ORDERED: potassium Cl 40MEQ/1/2NS 520ml 520 ML IV PRN (03:35)
[2025-01-06] MEDS ORDERED: magnesium sulf-water 4G/100mL 100 ML IV PRN (03:35)
[2025-01-06] MEDS ORDERED: potassium Cl 20 mEq SR tablet PO PRN (03:35)
[2025-01-06] MEDS: potassium Cl 20 mEq SR tablet PO PRN (04:59)
[2025-01-06 07:19] LABS: MEAN PLATELET VOLUME 9.8 FL (7.4-10.4); RED CELL DISTRIBUTION WIDTH 13.4 % (11.5-14.5)
[2025-01-06 07:40] LABS: CREATININE 0.71 MG/DL (0.40-0.90); PHOSPHORUS 2.7 MG/DL (2.3-4.5); TOTAL CARBON DIOXIDE 26.6 MMOL/L (24-32); eCRCL 68 ML/MIN; eGFR 87 ML/MIN
[2025-01-06] MEDS ORDERED: K and/or MAG REPLACEMENT MC SCH (08:00)
--- NOTE | 2025-01-06 10:50 | PROGRESS NOTE ---
Progress Note Dictate Providers to CC ~ Subjective Subjective: She continues to demonstrate fever. She does not seem to be confused. She still has some headache and neck stiffness. She was seen with an strapping machine tender. She is describing some paresthesias at her distal extremities. She denies any focal weakness. Objective Objective: Tmax 102.5 GENERAL: She is a middle-aged female, who is currently lying in bed looking tired but stable. She does not seem confused right now. LUNGS: Clear to auscultation bilaterally. HEART: Mildly tachycardic and regular. ABDOMEN: Soft, nontender, and nondistended. EXTREMITIES: No edema. SKIN: No rash. NEUROLOGIC: Neurologically, she is moving all 4 extremities. Lab Results: 01/06/25 0650 01/06/25 0650 Problem\Assessment\Plan Additional Plan 1. Meningoencephalitis of unclear etiology - suspect viral process CSF PCR panel at [facility] negative 2. Sepsis with persistent fever 3. Positive blood culture that may represent contamination 4. Diabetes mellitus type 2 that appears to be controlled Continue ceftriaxone - consider stopping soon F/U cultures F/U RPR F/U WNV serology F/U Coccidioides serology Check Quantiferon ELVA CHE MD Jan 06, 2025 10:50
[2025-01-06] MEDS: magnesium hydroxide 30ml (MOM) UD suspension PO PRN (11:15)
--- NOTE | 2025-01-06 20:06 | PROGRESS NOTE ---
Daily Progress Note Providers to CC No new complaint today resting comfortably in the bed ~ Central Line/PICC still needed: No Dela Cruz-Non Protocol Dela Cruz Indications Met/Not Met: F/C Indications Not Met Antibiotic Timeout Antibiotic Ordered?: Yes MRSA Education MRSA Education Provided to pt: Yes Subjective As above Objective Vital Signs Date Time Temp Pulse Resp B/P (MAP) Pulse Ox O2 Delivery O2 Flow Rate FiO2 01/06/25 10:00 150/80 (103) 01/06/25 10:00 98.9 98 01/06/25 10:00 18 98 Room Air 01/06/25 07:51 0 21 Vital signs, stable ,afebrile. Pulse Oximetry reflects adequate oxygenation. General: well developed, well nourished. Awake , alert, and oriented x4, resting comfortably in the bed, in no acute distress . Skin: Warm, dry, no pallor, no rash or petechiae. HEENT: Atraumatic, normocephalic, EOMI, anicteric sclera B; pink conjunctiva; PERRLA, normal oropharynx, moist oral and nasal mucosa. Tympanic membrane , nose , throat clear. Neck: Trachea midline. Supple, full range of motion, no JVD, bruit , hepatojugular reflex , lymphadenopathy or masses, or other lesions Cardiac: Regular rhythm, regular rate no murmurs, rubs, or gallops. Normal S1 and S2, no S3 noticed. PMI is normal. Respiratory: Equal breath sounds bilaterally, no tachypnea; lungs clear to auscultation bilaterally, no wheezing ,rub or rales, or crackles. Chest wall is symmetric and without deformity. No signs of trauma. Chest wall is nontender. No signs of respiratory distress. Resonance is normal upon percussion bilaterally. Gastrointestinal: Abdomen symmetric, non-distended, soft, non-tender, normal bowel sounds x4 quadrant, normoactive, no hepatosplenomegaly , no masses , no bruit, no flank pain bilaterally. No voluntary guarding, rebound, or rigidity. No tenderness to percussion. No pulsatile masses. Equal femoral pulses. No Nails's sign or McBurney point tenderness. Back; no CVA tenderness bilaterally, no deformities. Neck and back are without deformity as well. No tenderness noted on palpation of the spinous processes. Spinous processes are midline. Cervical, thoracic, and lumbar paraspinal muscles are not tender and are without spasm. Musculoskeletal: Extremities, normal range of motion, non-tender, muscle strength 5/5 x 4. Negative Homans signs bilaterally on lower extremity. Distal pulses full symmetrical, no clubbing, cyanosis , edema. Neurological: Speech is clear, alert, and oriented x 4. No motor or sensory deficit, deep tendon reflexes normal, cerebellar intact. Cranial nerves II-XII intact. Psych: Alert and or appropriate, normal affect. Vascular: Good distal pulses, which are equal x4; capillary refill less than 2 seconds. Lymphatic, no lymphadenopathy. Result Diagram: 01/06/25 0650 01/06/25 0650 Coagulation Studies Laboratory Tests Test 01/03/25 00:35 01/04/25 09:00 Prothrombin Time 11.4 SECONDS (9.0-12.0) INR International Normalized Ratio 1.1 INR Activated Partial Thromboplast Time 59 SECONDS (22-32) H APTT (Heparin Protocol) 101 SECONDS (45-60) *H Coagulation Comments Problem\Assessment\Plan Assessment & Plan Meningitis-encephalitis, viral Syncope Bacteremia Sepsis- source unknown NSTEMI likely Type II [place] 2/2 above -influenza, COVID19 neg, UA unremarkable, CT abd/pelv at OSH unremarkable, elevated lactic acidosis 2.2 at OSH downtrended to 2.0, CTA PE ruled out but showed patchy opacities in posterior left lobe of lung, trops, Oneyda neg downtrended, UDS at OSH positive BZD; TTE LVEF 70-75%, no evidence of vegetation, consulted ID Dr. Garcia with recommendation for lumbar puncture. LP ordered, will be done by anesthesiologist Dr. Mendes. Mild aspiration pneumonitis -CXR negative acute findings CALI vs CKD Hypertension IDDM MDD Hypokalemia -antihypertensive started, on hyperglycemia/hypoglycemia protocol, K/Mg per protocol Patient noncompliant with treatment refuses many procedure and medications Code status: Full code DVT/VTE prophylaxis: heparin Sepsis Screening Reassessment Date: Jan 06, 2025 Date of Service: Jan 06, 2025 Billing Provider: NEVIN BLOOM MD Common Visit Codes: [id number] INP/OBS CARE(HIGH) NEVIN BLOOM MD Jan 06, 2025 20:06
[2025-01-07] VITALS (7 sets, daily range): BP systolic 129–149; BP diastolic 65–80; PULSE 88–98; RESP 12–18; TEMP 97.2–98.9; O2SAT 95–99
[2025-01-07] MEDS: FLU VACC TS2025-26(6MOS UP)/PF (FLULAVAL) 45 MCG/0.5 ML SYRINGE IMVAC ONE (09:24)
--- NOTE | 2025-01-07 10:52 | PROGRESS NOTE ---
Progress Note Dictate Providers to CC ~ Subjective Subjective: She seems to be doing a bit better. Fever improved. Objective Objective: Afebrile with stable vital signs GENERAL: She is a middle-aged female, who is currently lying in bed looking tired but stable. She does not seem confused right now. LUNGS: Clear to auscultation bilaterally. HEART: Mildly tachycardic and regular. ABDOMEN: Soft, nontender, and nondistended. EXTREMITIES: No edema. SKIN: No rash. NEUROLOGIC: Neurologically, she is moving all 4 extremities. Lab Results: 01/06/2564901/06/25649 Lab comments: RPR nonreactive Problem\Assessment\Plan Additional Plan 1. Meningoencephalitis of unclear etiology - suspect viral process [facility] negative 2. Sepsis with intermittent fever 3. Positive blood culture - contaminated 4. Diabetes mellitus type 2 that appears to be controlled DC ceftriaxone F/U cultures F/U WNV serology F/U Coccidioides serology F/U Quantiferon ELVA CHE MD Jan 07, 2025 10:52
[2025-01-07 11:46] LABS: MEAN PLATELET VOLUME 10.3 FL (7.4-10.4); RED CELL DISTRIBUTION WIDTH 13.2 % (11.5-14.5)
[2025-01-07 11:55] LABS: CREATININE 0.61 MG/DL (0.40-0.90); PHOSPHORUS 3.0 MG/DL (2.3-4.5); TOTAL CARBON DIOXIDE 26.3 MMOL/L (24-32); eCRCL 79 ML/MIN; eGFR > 90 ML/MIN
[2025-01-07] MEDS: hydrocortisone 1% cream 28gm TP PRN (13:08)
--- NOTE | 2025-01-07 20:06 | PROGRESS NOTE ---
Daily Progress Note Providers to CC Feels better today better appetite , better sleep Central Line/PICC still needed: No Dela Cruz-Non Protocol Dela Cruz Indications Met/Not Met: F/C Indications Not Met Antibiotic Timeout Antibiotic Ordered?: Yes MRSA Education MRSA Education Provided to pt: Yes Subjective As above Objective Vital Signs Date Time Temp Pulse Resp B/P (MAP) Pulse Ox O2 Delivery O2 Flow Rate FiO2 01/07/25 15:00 98.9 93 17 139/79 (99) 99 Room Air 01/07/25 11:44 0 21 Vital signs, stable ,afebrile. Pulse Oximetry reflects adequate oxygenation. General: well developed, well nourished. Awake , alert, and oriented x4, resting comfortably in the bed, in no acute distress . Skin: Warm, dry, no pallor, no rash or petechiae. HEENT: Atraumatic, normocephalic, EOMI, anicteric sclera B; pink conjunctiva; PERRLA, normal oropharynx, moist oral and nasal mucosa. Tympanic membrane , nose , throat clear. Neck: Trachea midline. Supple, full range of motion, no JVD, bruit , hepatojugular reflex , lymphadenopathy or masses, or other lesions Cardiac: Regular rhythm, regular rate no murmurs, rubs, or gallops. Normal S1 and S2, no S3 noticed. PMI is normal. Respiratory: Equal breath sounds bilaterally, no tachypnea; lungs clear to auscultation bilaterally, no wheezing ,rub or rales, or crackles. Chest wall is symmetric and without deformity. No signs of trauma. Chest wall is nontender. No signs of respiratory distress. Resonance is normal upon percussion bilaterally. Gastrointestinal: Abdomen symmetric, non-distended, soft, non-tender, normal bowel sounds x4 quadrant, normoactive, no hepatosplenomegaly , no masses , no bruit, no flank pain bilaterally. No voluntary guarding, rebound, or rigidity. No tenderness to percussion. No pulsatile masses. Equal femoral pulses. No Nails's sign or McBurney point tenderness. Back; no CVA tenderness bilaterally, no deformities. Neck and back are without deformity as well. No tenderness noted on palpation of the spinous processes. Spinous processes are midline. Cervical, thoracic, and lumbar paraspinal muscles are not tender and are without spasm. Musculoskeletal: Extremities, normal range of motion, non-tender, muscle strength 5/5 x 4. Negative Homans signs bilaterally on lower extremity. Distal pulses full symmetrical, no clubbing, cyanosis , edema. Neurological: Speech is clear, alert, and oriented x 4. No motor or sensory deficit, deep tendon reflexes normal, cerebellar intact. Cranial nerves II-XII intact. Psych: Alert and or appropriate, normal affect. Vascular: Good distal pulses, which are equal x4; capillary refill less than 2 seconds. Lymphatic, no lymphadenopathy. Result Diagram: 01/07/25 1023 01/07/25 1023 Coagulation Studies Laboratory Tests Test 01/03/25 00:35 01/04/25 09:00 Prothrombin Time 11.4 SECONDS (9.0-12.0) INR International Normalized Ratio 1.1 INR Activated Partial Thromboplast Time 59 SECONDS (22-32) H APTT (Heparin Protocol) 101 SECONDS (45-60) *H Coagulation Comments Problem\Assessment\Plan Assessment & Plan Meningitis-encephalitis, viral improved Syncope Bacteremia , antibiotics discontinued by Dr. Garcia Sepsis- source unknown NSTEMI likely Type II HI 2/2 above -influenza, COVID19 neg, UA unremarkable, CT abd/pelv at OSH unremarkable, elevated lactic acidosis 2.2 at OSH downtrended to 2.0, CTA PE ruled out but showed patchy opacities in posterior left lobe of lung, trops, Oneyda neg downtrended, UDS at OSH positive BZD; TTE LVEF 70-75%, no evidence of vegetation, consulted ID Dr. Garcia with recommendation for lumbar puncture. LP ordered, will be done by anesthesiologist Dr. Mendes. Mild aspiration pneumonitis -CXR negative acute findings CALI vs CKD Hypertension IDDM MDD Hypokalemia -antihypertensive started, on hyperglycemia/hypoglycemia protocol, K/Mg per protocol Patient noncompliant with treatment refuses many procedure and medications Code status: Full code DVT/VTE prophylaxis: heparin Sepsis Screening Reassessment Date: Jan 07, 2025 Date of Service: Jan 07, 2025 Billing Provider: NEVIN BLOOM MD Common Visit Codes: [id number] INP/OBS CARE(HIGH) NEVIN BLOOM MD Jan 07, 2025 20:06
[2025-01-08 08:00] VITALS: RESP 16; O2SAT 95
[2025-01-08 08:32] VITALS: PULSE 90; RESP 16; O2SAT 95
--- NOTE | 2025-01-08 10:44 | PROGRESS NOTE ---
Progress Note Dictate Providers to CC ~ Subjective Subjective: She states that she is feeling better. She feels that she is ready to go home. She states that she lives alone and she does not have anyone to pick her up. Objective Objective: Afebrile with stable vital signs GENERAL: She is a middle-aged female, who is currently lying in bed looking tired but stable. LUNGS: Clear to auscultation bilaterally. HEART: Regular rate and rhythm. ABDOMEN: Soft, nontender, and nondistended. EXTREMITIES: No edema. SKIN: No rash. NEUROLOGIC: Neurologically, she is moving all 4 extremities. Lab Results: 01/07/25 1023 01/07/25 1023 Problem\Assessment\Plan Additional Plan 1. Meningoencephalitis of unclear etiology - suspect viral process, improving CSF PCR panel at [facility] negative 2. Sepsis with intermittent fever - resolved 3. Positive blood culture - contaminated 4. Diabetes mellitus type 2 that appears to be controlled Okay to discharge home, and I will follow up pending labs F/U WNV serology F/U Coccidioides serology F/U Quantiferon ELVA CHE MD Jan 08, 2025 10:44
--- NOTE | 2025-01-08 18:43 | DISCHARGE SUMMARY ---
Discharge Summary Providers to No new complaint today asking to be discharged home, cleared to discharge by Infectious Disease DrJerrod ~ Discharge Summary Assessment Acute meningoencephalitis Metabolic encephalopathy Syncope secondary to all of the above Aspiration pneumonitis Prolonged QT syndrome Hypertension, type 2 diabetes mellitus- insulin-dependent, depression Non ST-elevation [place] type 2 Acute kidney injury secondary to vasomotor nephropathy Hypokalemia Admission Diagnosis: SYNCOPE Admission Diagnosis Comment: Acute meningoencephalitis Metabolic encephalopathy Syncope secondary to all of the above Aspiration pneumonitis Prolonged QT syndrome Hypertension, type 2 diabetes mellitus- insulin-dependent, depression Non ST-elevation [place] type 2 Acute kidney injury secondary to vasomotor nephropathy Hypokalemia Hospital Course DATE OF ADMISSION: 01/03/2025 DATE OF DISCHARGE: January 08, 2025 Discharge Diagnosis\\Comment: Acute meningoencephalitis Metabolic encephalopathy Syncope secondary to all of the above Aspiration pneumonitis Prolonged QT syndrome Hypertension, type 2 diabetes mellitus- insulin-dependent, depression Non ST-elevation [place] type 2 Acute kidney injury secondary to vasomotor nephropathy Hypokalemia Operations\\Procedures: Lumbar puncture Consultants: Disease doctor Complications: None Condition on DC: Stable Discharge Summary: 49-year-old female [place]-speaking patient with a past medical history of insulin-dependent type 2 diabetes mellitus and hypertension was transferred to our facility from [place] for further management of her syncope, AMS and hypothermia. An lion hunter head with translation and communication (ID #[id number]). Patient is a very poor historian and is reluctant to provide any history by herself. Reviewed records from [place] and very minimal information has been obtained from the patient. Even with the guillotine operator, patient is reluctant to provide any history as to what had happened.As per EMS and [place], the patient is brought in by ambulance after she had a s yncopal episode at home. The ambulance was called in by her son. She presented with high blood pressure in the high 180s and persistent sinus tachycardia. She was also found to be febrile throughout the hospitalization. An extensive workup was done in the other hospital including a CT head and CT spine had no acute abnormalities. In view of the tachycardia, 1.5 L of IV fluid boluses were given but her heart rate failed to respond to either. IV labetalol 10 mg IV push x2 was given and the patient is still failed to respond. A CTA chest ruled out presence of pulmonary embolism but revealed possible patchy opacities in the posterior left lower lobe reflecting possible mild aspiration pneumonitis. A CT with IV contrast of the abdomen and pelvis were also performed but to his lack of oral contrast and largely collapsed large bowel; examination was limited. However, they found no free fluid or loculated fluid collection within the abdomen. Her labs also indicated lactic acidosis, initially at 1.7 which later increased to 2.2 despite IV fluid resuscitation. Her blood glucose was only 244. She was additionally evaluated for creatinine kinase and TSH which were also within normal limits. No antibiotics were given at [place]. She was transferred for higher level care has a troponins were elevated mildly NS suspicion of NSTEMI a heparin drip was started prior to transfer. Review of medications, Contrasting history was provided by the patient reporting that she had suffered no fall and felt acutely weak while she was in the bathroom. She reports having chills and headache over the last couple of days but had no fevers, shortness of breath, cough, abdominal pain, burning micturition, or diarrhea. She reports some "gentleman" called the ambulance for her as she was significantly weak.Course at [place]: 1.5 L bolus, Iv labetolol 10mg IV push x2. Heparin drip. Labs: White count 10.7 with neutrophilic predominance at 84%. Hemoglobin 16.7 and hematocrit 49.2. CMP revealed blood glucose at 2:44 a.m., creatinine 1.25, elevated calcium at 10.4, no albumin on board. Elevated total bilirubin at 1.27. ALT within normal limits with mildly elevated AST at 36. Normal alkaline phosphatase normal lipase. Ammonia 28. Urine tox positive for benzodiazepines. Tylenol level, salicylic acid level and ethanol level were negative. His UA was also cleaned for a UTI after admission patient was extensively evaluated treated today she is feeling fine asking to be discharged home medication reconciled follow-up PCP in the morning, today on physical exam, Vital signs, stable ,afebrile. Pulse Oximetry reflects adequate oxygenation. B General: well developed, well nourished. Awake , alert, and oriented x4, resting comfortably in the bed, in no acute distress . Skin: Warm, dry, no pallor, no rash or petechiae. HEENT: Atraumatic, normocephalic, EOMI, anicteric sclera B; pink conjunctiva; PERRLA, normal oropharynx, moist oral and nasal mucosa. Tympanic membrane , nose , throat clear. Neck: Trachea midline. Supple, full range of motion, no JVD, bruit , hepatojugular reflex , lymphadenopathy or masses, or other lesions Cardiac: Regular rhythm, regular rate no murmurs, rubs, or gallops. Normal S1 and S2, no S3 noticed. PMI is normal. Respiratory: Equal breath sounds bilaterally, no tachypnea; lungs clear to auscultation bilaterally, no wheezing ,rub or rales, or crackles. Chest wall is symmetric and without deformity. No signs of trauma. Chest wall is nontender. No signs of respiratory distress. Resonance is normal upon percussion bilaterally. Gastrointestinal: Abdomen symmetric, non-distended, soft, non-tender, normal bowel sounds x4 quadrant, normoactive, no hepatosplenomegaly , no masses , no bruit, no flank pain bilaterally. No voluntary guarding, r ebound, or rigidity. No tenderness to percussion. No pulsatile masses. Equal femoral pulses. No Nails's sign or McBurney point tenderness. Back; no CVA tenderness bilaterally, no deformities. Neck and back are without deformity as well. No tenderness noted on palpation of the spinous processes. Spinous processes are midline. Cervical, thoracic, and lumbar paraspinal musc les are not tender and are without spasm. : Not indicated Musculoskeletal: Extremities, normal range of motion, non-tender, muscle strength 5/5 x 4. Negative Homans signs bilaterally on lower extremity. Distal pulses full symmetrical, no clubbing, cyanosis , edema. Neurological: Speech is clear, alert, and oriented x 4. No motor or sensory deficit, deep tendon reflexes normal, cerebellar intact. Cranial nerves II-XII intact. Psych: Alert and or appropriate, normal affect. Vascular: Good distal pulses, which are equal x4; capillary refill less than 2 seconds. Lymphatic, no lymphadenopathy. *Problems/Diagnosis: (1) Syncope Status: Acute (2) Non-STEMI (non-ST elevated myocardial infarction) Status: Acute Total Time Spent on D/C: > 30 Minutes Date of Service: Jan 08, 2025 Billing Provider: ENVIN BLOOM MD Common Visit Codes: 33475-MYV/OBS DISCH DAY >30min Problem Qualifiers (1) Syncope: Qualified Codes: R55 - Syncope and collapse NEVIN BLOOM MD Jan 08, 2025 18:43
[2025-01-09 11:14] LABS: N meningitidis (encapsulated) Not Detected (Not Detected)
[2025-01-11 15:24] LABS: IMMUNOGLOBULIN M, QN, CSF 0.26 mg/dL (0.01-0.08)
[2025-01-12 05:13] LABS: COCCIDIOIDES CF ANTIBODY <1:2 (<1:2)
== END 2025-01-08 14:03 | disposition home or self-care (01) | DRG 720 ==
LOC: ER 00:10 → ED HOLD 01:15 → UNDOADMIN 01:45 → PCU 3S 07:30 → ED HOLD 07:30 → PCU 3S 07:35
PROVIDERS: ADMIT Internal Medicine; ATTEND Nurse Practitioner Family
PROC: 4A02XM4 Measurement of Cardiac Total Activity, External Approach (ICD-10-PCS; principal; 2025-01-04)
PROC: 3E033HZ Introduction of Radioactive Substance into Peripheral Vein, Percutaneous Approach (ICD-10-PCS; 2025-01-04)
PROC: 009U3ZX Drainage of Spinal Canal, Percutaneous Approach, Diagnostic (ICD-10-PCS; 2025-01-05)
DX: A41.9 Sepsis, unspecified organism (principal); N17.0 Acute kidney failure with tubular necrosis; A86 Unspecified viral encephalitis; J69.0 Pneumonitis due to inhalation of food and vomit; G93.41 Metabolic encephalopathy; E87.20 Acidosis, unspecified; I21.A1 Myocardial infarction type 2; E11.9 Type 2 diabetes mellitus without complications; E78.00 Pure hypercholesterolemia, unspecified; I10 Essential (primary) hypertension; Z20.822 Contact with and (suspected) exposure to COVID-19; F32.A Depression, unspecified; E87.6 Hypokalemia; M43.6 Torticollis; F32.9 Major depressive disorder, single episode, unspecified; Z79.4 Long term (current) use of insulin; Z90.710 Acquired absence of both cervix and uterus; Z90.49 Acquired absence of other specified parts of digestive tract; Z91.199 Patient's noncompliance with other medical treatment and regimen due to unspecified reason
CPT/HCPCS: 36415; 62328; 70551; 71045; 78452; 80048; 80053; 80061; 80076; 80305; 81001; 82784; 82945; 82948; 83036; 83605; 83735; 83880; 84100; 84132; 84145; 84157; 84484; 85007; 85025; 85610; 85651; 85730; 86140; 86592; 86703; 86788; 86789; 87015; 87040; 87070; 87077; 87081; 87186; 87483; 87804; 87811; 89051; 93005; 93017; 93306; 93880; 94760; 96365; 97110; 97116; 97162; 99291; A4314; A6258; A9500; G0378; J0131; J0456; J0692; J0696; J1200; J1644; J1815; J2405; J2470; J2765; J2785; J3375; J3490; J7030; J7040